=== PATIENT | female | born 1965 | race Caucasian/White ===

== ENCOUNTER 2022-11-20 08:41 | Day surgery (SDC) | payer BC ==
[~2022-11-20 08:41] MED LIST: Lactated Ringers 1,000 ML IV SCH; Sodium Chloride 0.9% 10 ML Syringe FLUSH PRN; Sodium Chloride 0.9% 2.5 ML Syringe FLUSH PRN; Sodium Chloride 0.9% 20 ML SDV IV PRN
[2022-11-20] MEDS ORDERED: Propofol 200 MG/20 ML SDV ONE (10:26)
[2022-11-20] MEDS ORDERED: Lidocaine 2% 5 ML SDV ONE (10:26)
[2022-11-20 11:19] VITALS: BP 107/55; PULSE 75
== END 2022-11-20 11:25 | disposition home or self-care (01) ==
LOC: MW.SDS 08:41
PROVIDERS: ATTEND Surgery
DX: Z12.11 Encounter for screening for malignant neoplasm of colon (principal); K21.9 Gastro-esophageal reflux disease without esophagitis; G43.909 Migraine, unspecified, not intractable, without status migrainosus; Z80.0 Family history of malignant neoplasm of digestive organs; Z98.890 Other specified postprocedural states; Z79.899 Other long term (current) drug therapy
CPT/HCPCS: 45378; J2704; J7120